=== PATIENT | male | born 1955 | race Hispanic/Latino ===

== ENCOUNTER 2025-04-02 17:13 | Emergency (ER) | payer MEDICARE ==
[~2025-04-02] VITALS: Ht 177.8 cm; Wt 86.2 kg
--- NOTE | 2025-04-02 17:25 | ERN ---
ED Note History of Present Illness Stated Complaint: DIZZY Chief Complaint: Dizzy/Light Headed Time Seen by MD: 17:19 Dictation: PATIENT IS A 69-YEAR-OLD MALE COMING IN TODAY WITH COMPLAINTS OF EATING APPROXIMATE 01:00 WHEN HE STARTED FEELING SINCE OF DIZZINESS WITH THE ROOM SPINNING. HE STATES IT WAS WORSE WHEN HE LOOKED DOWN. NO NAUSEA NO VOMITING NO HEADACHE. STATES HE HAS A HISTORY OF HYPERTENSION AND GOUT. STATES HE STILL FEELS DIZZY WHEN HE LOOKS DOWN. NIH IS 0 SPEECH IS CLEAR. STROKE ALERT CRITERIA AT THIS TIME. HE STATES I THINK I AM DEHYDRATED WE JUST GOT IN FROM A LONG TRIP FROM [place] AND MY FLUID INTAKE HAS BEEN LOW. PATIENT DOES STATE HE HAS A AN IRON-DEFICIENCY ANEMIA THREE YEARS AGO BEFORE HE RETIRED AND IT WAS CURED WITH MULTIPLE IRON TRANSFUSIONS AND COOL. Allergies: Coded Allergies: lisinopril (Unverified Allergy, Unknown, ANAPHYLAXIS, 04/02/25) Past Medical History Past Medical History: Hypertension Additional Past Medical Hx: GOUT Surgical History: Other Surgical History Other: BACK SX, SKIN BX, BILAT ANKLE SX, LT KNEE SX RN Note Reviewed/Agreed w/PFSH: Yes Review of System Dictation CONSTITUTIONAL: NEGATIVE EXCEPT FOR HPI HEAD/FACE: NEGATIVE EXCEPT FOR HPI EENT: NEGATIVE EXCEPT FOR HPI RESPIRATORY: NEGATIVE EXCEPT FOR HPI GASTROINTESTINAL/ABDOMINAL: NEGATIVE EXCEPT FOR HPI GENITOURINARY: NEGATIVE EXCEPT FOR HPI MUSCULOSKELETAL: NEGATIVE EXCEPT FOR HPI INTEGUMENTARY: NEGATIVE EXCEPT FOR HPI NEUROLOGICAL/PSYCH: NEGATIVE EXCEPT FOR HPI DIZZINESS HEMATOLOGIC/LYMPHATIC: NEGATIVE EXCEPT FOR HPI ALL SYSTEMS NEGATIVE, EXCEPT NOTED ABOVE. 13 POINT REVIEW OF SYSTEMS ASSESSED AND ALL NEGATIVE EXCEPT FOR ABOVE. Initial Vital Sign VS Vital Signs Date Time Temp Pulse Resp B/P (MAP) Pulse Ox O2 Delivery O2 Flow Rate FiO2 04/02/25 17:15 97.9 60 16 148/95 99 Room Air 0 04/02/25 17:26 21 Physical Exam Dictation VITAL SIGNS REVIEWED GENERAL APPEARANCE: ALERT, ORIENTED X 3, NO ACUTE DISTRESS, WELL DEVELOPED, NOURISHED. HEAD AND FACE: NON-TRAUMATIC. EYES: PERRL, PINK CONJUNCTIVAS, EYELID NO TRAUMA, ANTERIOR CHAMBER WITH ARCUS SENILIS. MILD LEFT HORIZONTAL NYSTAGMUS EARS: PINNAS INTACT AND NO SIGNS OF TRAUMA OR ERYTHEMA EAR CANALS CLEAR AND NO DISCHARGE TM NO ERYTHEMA NOSE: NO DISCHARGE, NO BLEEDING. OROPHARYNX: MOUTH NORMAL, TONGUE PINK, PHARYNX CLEAR,NO ERYTHEMA, TONSILS NO EXUDATES, NO ABSCESSES NOTED, MUCOUS MEMBRANE MOIST NECK: SUPPLE, NON-TENDER, NO THYROMEGALY, NO MASSES, NO JVD, NO BRUITS BREAST:DEFERRED CHEST:NO TENDERNESS, NO CREPITUS, NO PARADOXICAL MOVEMENT, NO RETRACTIONS LUNGS:CLEAR, WELL-VENTILATED, SYMMETRIC, NO RALES, NO WHEEZING, NO RHONCHI, NO STRIDOR, GOOD BREATH SOUNDS BILATERALLY HEART: REGULAR RATE, REGULAR RHYTHM, NO MURMUR, NO GALLOPS VASCULAR: NO PERIPHERAL EDEMA, ABDOMEN: SOFT, POSITIVE BOWEL SOUNDS, NONDISTENDED, NO GUARDING, NONTENDER, NO REBOUND, NO MASSES NO HEPATOMEGALY, NO SPLENOMEGALY, NO RADER'S SIGN, NO HERNIAS. RECTAL: DEFERRED GENITAL: DEFERRED NEUROLOGICAL: NORMAL SPEECH, MOTOR FUNCTION INTACT, SENSORY FUNCTION INTACT NIH IS 0 MUSCULOSKELETAL: NECK NONTENDER, FULL RANGE OF MOTION, BACK NONTENDER, FULL RANGE OF MOTION, EXTREMITIES: NONTENDER, FULL RANGE OF MOTION SKIN: COLOR PINK, DRY, NO TURGOR, NO RASH, NO LACERATIONS, NO ABRASIONS, NO CONTUSIONS. LYMPHATIC: DEFERRED Results (Laboratory/Radiology) Laboratory/Radiology Laboratory Tests Test 04/02/25 17:31 04/02/25 19:26 White Blood Count 6.4 K/uL (4.8-10.8) Red Blood Count 4.46 MIL/uL (4.50-6.20) L Hemoglobin 14.0 g/dL (14.0-18.0) Hematocrit 42.0 % (42-54) Mean Corpuscular Volume 94.2 fL (79-99) Mean Corpuscular Hemoglobin 31.4 pg (27.0-33.0) Mean Corpuscular Hemoglobin Concent 33.3 g/dL (32.0-36.0) Red Cell Distribution Width 13.4 % (11.0-15.5) Platelet Count 95 K/uL (130-400) L Mean Platelet Volume 10.1 fL (7.5-10.5) Immature Granulocyte % (Auto) 0.5 % (0-1) Neutrophils (%) (Auto) 72.6 % (40.0-77.0) Lymphocytes (%) (Auto) 13.1 % (21.0-51.0) L Monocytes (%) (Auto) 11.5 % (3.0-13.0) Eosinophils (%) (Auto) 1.7 % (0.0-8.0) Basophils (%) (Auto) 0.6 % (0.0-5.0) Neutrophils # (Auto) 4.7 K/uL (1.8-7.7) Lymphocytes # (Auto) 0.8 K/uL (1.0-4.8) L Monocytes # (Auto) 0.7 K/uL (0.1-1.0) Eosinophils # (Auto) 0.11 K/uL (0.00-0.70) Basophils # (Auto) 0.04 K/uL (0.00-0.20) Absolute Immature Granulocyte (auto 0.03 K/uL (0-1) Nucleated Red Blood Cells 0.0 % (0.0-0.19) Sodium Level 136 mmol/L (136-145) Potassium Level 4.0 mmol/L (3.5-5.1) Chloride Level 101 mmol/L (101-111) Carbon Dioxide Level 25 mmol/L (21-32) Blood Urea Nitrogen 26 mg/dL (7-18) H Creatinine 1.1 mg/dL (0.5-1.3) Glomerular Filtration Rate Calc 73 mL/min (>90) Random Glucose 133 mg/dL (70-105) H Total Calcium 9.2 mg/dL (8.5-10.1) Magnesium Level 2.00 mg/dL (1.80-2.40) Troponin I High Sensitivity 5 ng/L (4-75) Urine Color LIGHT-YELLOW (YELLOW) Urine Appearance CLEAR (CLEAR) Urine pH 6.5 (5.0-8.0) Urine Specific [place] 1.014 (1.001-1.031) Urine Protein NEGATIVE mg/dL (NEGATIVE) Urine Glucose (UA) NEGATIVE mg/dL (NEGATIVE) Urine Ketones NEGATIVE mg/dL (NEGATIVE) Urine Occult Blood NEGATIVE (NEGATIVE) Urine Nitrate NEGATIVE (NEGATIVE) Urine Bilirubin NEGATIVE mg/dL (NEGATIVE) Urine Urobilinogen 0.2 mg/dL (0.2-1.0) Urine Leukocyte Esterase NEGATIVE Desiree/uL REASON: ACUTE DIZZINESS WORSE WHEN HE LOOKS DOWN 4 HOURS AGO ORDERING PHYSICIAN: LIANG POP CEMENT BASED [employer]S PUMP TENDER PROCEDURE: HEAD WO - CT HEAD/BRAIN W/O CONTRAST EXAM: CT Head Without IV contrast. CLINICAL HISTORY: ACUTE DIZZINESS WORSE WHEN HE LOOKS DOWN 4 HOURS AGO TECHNIQUE: Axial computed tomography images of the head/brain without intravenous contrast. COMPARISON: None provided. FINDINGS: BRAIN: No acute bleed or infarct. Mild chronic ischemic changes. VENTRICLES: No hydrocephalus. ORBITS: The orbits are unremarkable. SINUSES AND MASTOIDS: The paranasal sinuses and mastoid air cells are clear. BONES: No fracture. SOFT TISSUES: Unremarkable. IMPRESSION: No acute bleed or infarct. Mild chronic ischemic changes. /[place] Labs Reviewed?: Yes EKG Comment: 1739/EKG SINUS BRADYCARDIA WITH A FIRST-DEGREE AV BOX AXIS NORMAL/LEFT BUNDLE BRANCH BLOCK NO PRIOR EKGS TO COMPARE IN MEDICAL RECORDS. THIS IS PATIENT'S 1ST VISIT TO [facility] – [place]. ED Course ED Course Orders Procedure Category Date Status Time Ct Head/Brain W/O CT 04/02/25 Resulted Contrast 17:22 Cbc With Differential LAB 04/02/25 Complete 17:22 12 Lead Ekg Tracing- EKG 04/02/25 Complete Technical 17:22 0.9%Nacl 1000ml (Ns PHA 04/02/25 Complete 1000ml) 17:30 Magnesium LAB 04/02/25 Complete 17:22 Troponin I High LAB 04/02/25 Complete Sensitivity 17:22 Basic Metabolic Panel LAB 04/02/25 Complete 17:22 Ondansetron 4mg Inj PHA 04/02/25 Complete (Zofran 4mg Inj) 17:44 Orthostatic Vital CPOE 04/02/25 Transmitted Signs 17:45 Ondansetron 4mg Inj PHA 04/02/25 Complete (Zofran 4mg Inj) 18:00 Meclizine Hcl 25 Mg PHA 04/02/25 Complete (Antivert 25 Mg) 18:30 Methylprednisolone PHA 04/02/25 Complete Succ 125mg (Solu-Medr 19:00 *Nursing CPOE 04/02/25 Transmitted Communication: 19:20 Urinalysis Profile LAB 04/02/25 Complete 19:28 Current Medications Medications (Trade) Dose Ordered Sig/Yarelis Route PRN Reason Start Time Stop Time Status Last Admin Dose Admin Meclizine HCl (ANTIvert 25 mg) 50 mg ONCE ONCE PO 04/02/25 18:30 04/02/25 18:31 DC 04/02/25 18:17 Methylprednisolone Sodium Succinate (Solu-medROL 125MG) 125 mg ONCE ONCE IVP 04/02/25 19:00 04/02/25 19:01 DC 04/02/25 18:50 Ondansetron HCl (zoFRAN 4MG INJ) 4 mg ONCE ONCE IVP 04/02/25 18:00 04/02/25 18:01 DC 04/02/25 17:53 Ondansetron HCl (zoFRAN 4MG INJ) 4 mg STK-MED ONCE .ROUTE 04/02/25 17:44 04/02/25 17:44 DC Sodium Chloride 1,000 ml @ 0 mls/hr ONCE ONCE IV 04/02/25 17:30 04/02/25 17:31 DC 04/02/25 17:33 Vital Signs Date Time Temp Pulse Resp B/P (MAP) Pulse Ox O2 Delivery O2 Flow Rate FiO2 04/02/25 19:38 66 16 148/80 99 Room Air* 0 21 04/02/25 19:34 59 16 150/78 99 Room Air* 0 21 04/02/25 19:15 61 18 147/70 99 Room Air* 0 21 04/02/25 18:45 97.9 62 14 157/75 99 Room Air* 0 21 04/02/25 17:26 97.9 60 16 148/95 99 Room Air* 0 21 04/02/25 17:15 97.9 60 16 148/95 99 Room Air 0 1740 SPOKE WITH PATIENT AT LENGTH HE STATES HE HAS HAD A LEFT BUNDLE BRANCH BLOCK SINCE HE WAS 30 YEARS OLD. STATES HE HAS BEEN EVALUATED BY PET ADOPTION COUNSELOR'S IN THE PAST, HAD CAROTID STUDIES DONE WHEN HE WAS 50 YEARS OLD AND THEY WERE NEGATIVE. HE DENIES CHEST PAIN BACK PAIN NO SOB. EKG REVIEWED BY DR. ANAIS DE LOS SANTOS, NO OTHER INTERVENTION AT THIS TIME. 1920/PATIENT CONTINUES TO BE DIZZY SAYS WORSE WHEN HE TILTS HIS HEAD DOWN. PATIENT HAS BEEN GIVEN MECLIZINE AND SOLU-MEDROL WITH FLUIDS NO HELP. PENDING SOC WITH NEUROLOGY. 2029/PATIENT ALERT AND ORIENTED X4 SPEECH IS CLEAR NIH IS 0. HE STATES HE FEELS APPROXIMATELY 50-60% BETTER AFTER TREATMENT WITH MECLIZINE AND SOLU-MEDROL. HE DOES NOT WISH TO STAY IN THE HOSPITAL NOR DOES HE WISH TO BE ADMITTED TO A HIGHER LEVEL OF CARE. I DISCUSSED FINDINGS WITH SOC NEUROLOGIST. HE WISHES TO GO HOME AND WE WILL FOLLOW UP WITH HIS DOCTOR. HE ALSO AGREES RETURNED TO THE HOSPITAL IF ANY NEW CONCERNS OR COMPLAINTS. HEART Score Response (Comments) Value EKG: Repolarization changes 1 Age: > 65yrs (+2) 2 Risk Factors: 1-2 risk factors (+1) 1 Initial Troponin: Normal limit (0) 0 Total 4 Medical Decision Making MDM MDM: DIFFERENTIAL DIAGNOSIS: CVA/ELECTROLYTE IMBALANCE/DEHYDRATION/ARRHYTHMIA/BENIGN POSITIONAL VERTIGO/LABYRINTHITIS RATIONALE: TESTS CONSIDERED AND ORDERED SECONDARY TO SHARED DECISION MAKING INCLUDE: EKG/LABS/RADIOLOGY PREVIOUS OUTSIDE RECORDS REVIEWED: OLD ER VISITS. RISK OF COMPLICATION AND/OR MORBIDITY OR MORTALITY OF PATIENT MANAGEMENT: NONE MEDICATIONS-PER MEDICATION RECONCILIATION NEED FOR HOSPITALIZATION: PATIENT DOES NOT MEET CRITERIA FOR HOSPITALIZATION. PATIENT REFUSES HOSPITALIZATION AT THIS TIME. NEED FOR EMERGENCY MAJOR/MINOR SURGERY: NO THERE ARE NO SOCIAL CONCERNS WITH THIS PATIENT. PRESCRIPTION DRUG MANAGEMENT MECLIZINE/PREDNISONE PRESCRIPTIONS WILL INCLUDE SYMPTOMATIC CARE PATIENT'S PRIOR EXTERNAL MEDICAL RECORDS FROM OTHER ER VISITS WERE REVIEWED BY ME INDICATED. PRIOR TESTING AND RESULTS FROM PREVIOUS VISITS WERE REVIEWED. PRIOR TESTS WERE TAKEN INTO ACCOUNT WITH MEDICAL DECISION MAKING AND RESOURCE UTILIZATION, INDEPENDENT HISTORIAN/HISTORIANS WERE USED TO OBTAIN COMPLETE MEDICAL HISTORY. I INDEPENDENTLY INTERPRETED THE TEST THAT WERE PERFORMED, RESULTS WERE REVIEWED BY ME AND CONSIDERED FINDINGS ON RADIOLOGY IF ORDERED. MEDICAL MANAGEMENT AND EXAMINATION INTERPRETATION DISCUSSIONS WERE HAD BY ME WITH OTHER QUALIFIED HEALTHCARE PROFESSIONALS INDICATED FOR THE PATIENT'S CARE. DX & DISP Disposition: Discharge Departure Impression: Primary Impression: Benign positional vertigo Additional Impressions: Left bundle branch block, Mild dehydration, Hyperglycemia Condition: Stable Scripts Prednisone (Prednisone) 20 Mg Tablet 1 TAB PO AD for 6 Days, #14 TAB 0 Refills TAKE 1 TAB BY MOUTH THREE TIMES PER DAY X3 DAYS, THEN TAKE 1 TAB BY MOUTH TWICE A DAY X2 DAYS, THEN TAKE 1 TAB BY MOUTH ONCE A DAY X1 DAY. TAKE WITH FOOD Prov: LIANG POPP 04/02/25 Meclizine HCl (Meclizine HCl) 25 Mg Tablet 25 MG PO TID for vertigo, #30 TAB 0 Refills Prov: LIANG POP 04/02/25 Additional Instructions: FOLLOW-UP WITH PRIMARY CARE PROVIDER IN 1 TO 2 DAYS. TAKE MEDICATIONS DIRECTED HERE IN THE EMERGENCY ROOM. OKAY TO CONTINUE HOME MEDICATIONS UNLESS OTHERWISE DISCUSSED DURING YOUR VISIT IN THE EMERGENCY ROOM TODAY. RETURN TO YOUR NEAREST EMERGENCY ROOM IF SYMPTOMS WORSEN OR IF THERE IS NO IMPROVEMENT. CALL 911 IF YOU NEED IMMEDIATE ASSISTANCE. TAKE TYLENOL OR MOTRIN [id number] NEEDED AND IF NO CONTRAINDICATIONS ARE PRESENT. INCREASE ORAL HYDRATION. A WOUND CULTURE OR URINE CULTURE WAS ORDERED HERE IN THE EMERGENCY ROOM DEPARTMENT PLEASE FOLLOW-UP WITH PRIMARY CARE PROVIDER AND ADVISE THEM TO GET REPEAT PORTS FROM OUR FACILITY. IF YOU HAD ANY MARCIA WRAP/SPLINTS THAT WERE APPLIED HERE, PLEASE DO NOT REMOVE THEM UNTIL YOU SEE YOUR PRIMARY CARE OR SPECIALTY. TAKE MECLIZINE EVERY 8 HOURS FOR THE NEXT THREE DAYS. TAKE PREDNISONE DIRECTED WITH FOOD DAILY UNTIL GONE. SEE YOUR PRIMARY CARE DOCTOR WHEN YOU RETURN HOME. RETURN BACK TO THE EMERGENCY ROOM IF ANY NEW CHANGES OR IF CONDITION GETS WORSE. Referrals: SELF,REFERRAL (PCP) Time of Disposition: 20:35 I have reviewed the case, and I agree with, Diagnosis and Plan LIANG POP CEMENT BASED MATERIALS PUMP TENDER Apr 02, 2025 17:25
[2025-04-02] MEDS: 0.9%NACL 1000ML 1,000 ML IV ONE (17:33)
[2025-04-02 17:40] LABS: IMMATURE GRANULOCYTE ABSOLUTE 0.03 K/uL (0-1); NUCLEATED RED BLOOD CELLS 0.0 % (0.0-0.19); PLATELET COUNT (AUTO) 95 K/uL (130-400); RED BLOOD CELL COUNT(AUTO) 4.46 MIL/uL (4.50-6.20); RED CELL DISTRIBUTION WIDTH 13.4 % (11.0-15.5); WHITE BLOOD COUNT (AUTO) 6.4 K/uL (4.8-10.8)
[2025-04-02 17:48] LABS: CREATININE 1.1 mg/dL (0.5-1.3); GLOMERULAR FILTR. RATE CALC 73.0 mL/min (>90); GLUCOSE,RANDOM 133.0 mg/dL (70-105); SODIUM SERUM 136.0 mmol/L (136-145); UREA NITROGEN, BLOOD 26.0 mg/dL (7-18)
--- NOTE | 2025-04-02 18:18 | NUR ---
PT WENT TO CT SCAN
--- NOTE | 2025-04-02 18:26 | NUR ---
PT BACK IN THE ROOM
--- NOTE | 2025-04-02 18:34 | HMCIMG ---
EXAM: CT Head Without IV contrast. CLINICAL HISTORY: ACUTE DIZZINESS WORSE WHEN HE LOOKS DOWN 4 HOURS AGO TECHNIQUE: Axial computed tomography images of the head/brain without intravenous contrast. COMPARISON: None provided. FINDINGS: BRAIN: No acute bleed or infarct. Mild chronic ischemic changes. VENTRICLES: No hydrocephalus. ORBITS: The orbits are unremarkable. SINUSES AND MASTOIDS: The paranasal sinuses and mastoid air cells are clear. BONES: No fracture. SOFT TISSUES: Unremarkable. IMPRESSION: No acute bleed or infarct. Mild chronic ischemic changes. /[place]
--- NOTE | 2025-04-02 19:18 | EKG ---
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
[2025-04-02 19:49] LABS: APPEARANCE,URINE CLEAR (CLEAR); GLUCOSE, URINE (UA) NEGATIVE (NEGATIVE); LEUKOCYTE ESTERASE ,URINE NEGATIVE Leu/uL (NEGATIVE); NITRATE,URINE NEGATIVE (NEGATIVE); OCCULT BLOOD,URINE NEGATIVE (NEGATIVE)
[2025-04-02 19:51] LABS: ADD UA MICROSCOPIC NO
[2025-04-02] MEDS ORDERED: PRED20TA3 PO (20:36)
[2025-04-02] MEDS ORDERED: MECL-302 PO (20:36)
[2025-04-02 21:47] VITALS: BP 150/78; PULSE 62; RESP 18; TEMP 98.2; O2SAT 98
== END 2025-04-02 21:52 | disposition home or self-care (01) ==
LOC: EDH 17:13
DX: H81.10 Benign paroxysmal vertigo, unspecified ear (principal); E86.0 Dehydration; I44.7 Left bundle-branch block, unspecified; R73.9 Hyperglycemia, unspecified; M10.9 Gout, unspecified; I10 Essential (primary) hypertension; Z88.8 Allergy status to other drugs, medicaments and biological substances
CPT/HCPCS: 99285; 96374; 70450; 96375; 96361; 83735; 84484; 80048; 85025; 81003; 36415; 93005; J1100; J2919; J7030; J2405